=== PATIENT | male | born 1955 | race Caucasian/White ===

== ENCOUNTER → 2019-06-30 | Outpatient (CLI) | payer OTHER ==
[2015-08-18 21:13] VITALS: BP 139/81
--- NOTE | 2019-06-30 16:32 | RAD ---
Testicular and scrotal duplex sonogram Clinical indications: Scrotal mass. FINDINGS: Duplex sonography of the scrotum and both testicles was performed including grayscale evaluation and color flow and waveform spectral analysis. The longitudinal and AP and transverse dimensions of the right testicle are 4.1 cm and 1.9 cm and 3.2 cm respectively. The longitudinal AP and transverse dimensions of the left testicle are 3.7 cm and 1.7 cm and 3.3 cm respectively. No testicular mass is seen. Symmetric color Doppler flow is seen within the testicles and therefore no testicular torsion is seen. There is a cyst of the head of the epididymis on the right side measuring 5 mm in size. There are 2 small cysts of the head of epididymis on the left side one measuring 4 mm and the larger one measuring 9 mm. No hyperemia is seen around this larger cyst. No abnormal hydrocele is seen on either side. In the area of clinical concern of the palpable nodule of the scrotum, there is a 6 mm x 4 mm x 3 mm subcutaneous hypoechoic complex nodule with no internal color flow. There is mild sound through-transmission. Given it's location, a subcutaneous complex sebaceous cyst is possible. IMPRESSION: Normal testicular sonogram. Bilateral epididymal cysts. With regard to the palpable lump, a small subcutaneous complex hypoechoic nodule is seen measuring 6 mm in size. This may represent a complex sebaceous cyst. Recommend clinical follow-up with regard to any growth in size. Electronically signed by: Robby Pop MD (06/30/2019 4:29 PM) [id number]
== END | disposition home or self-care (01) ==
LOC: US 09:50
PROVIDERS: ATTEND Physician Assistant
DX: N50.89 Other specified disorders of the male genital organs (principal); N50.3 Cyst of epididymis
CPT/HCPCS: 76870

== ENCOUNTER 2019-07-16 09:09 | Emergency (ER) | payer OTHER ==
[~2019-07-16] VITALS: Ht 177.8 cm; Wt 98.7 kg
[2019-07-16] MEDS ORDERED: IV NORMAL SALINE 1,000ML 1,000 ML IV SCH (09:26)
[2019-07-16] MEDS ORDERED: ASPIRIN 81 MG TAB.CHEW PO ONE (09:30)
[2019-07-16] MEDS ORDERED: NITROGLYCERIN SUBLINGUAL 0.4 MG BOTTLE OF 25. SL PRN (09:30)
--- NOTE | 2019-07-16 09:32 | PHYS DOC ---
Past History Past Medical History: High Cholesterol Past Surgical History: Knee Replacement, Other Alcohol Use: None Drug Use: None The HEART Score for CP Pts HEART Score for Chest Pain: HEART Score for Chest Pain Response (Comments) Value History Moderately Suspicious 1 ECG Nonspecific Repolarizatio 1 Age >45 - < 65 1 Risk Factors 1 or 2 Risk Factors 1 Troponin >3 x Normal Limit 2 Total 6 Risk Factors: Risk Factors: DM, Current or recent (<one month) smoker, HTN, HLP, family history of CAD, obesity. Risk Scores: Score 0 - 3: 2.5% MACE over next 6 weeks - Discharge Home Score 4 - 6: 20.3% MACE over next 6 weeks - Admit for Clinical Observation Score 7 - 10: 72.7% MACE over next 6 weeks - Early Invasive Strategies Adult General Chief Complaint Chief Complaint: CHEST PAIN HPI HPI Patient is a 64-year-old male who presents with complaint of chest tightness as well as some shortness of breath that started yesterday. Patient states that pain had resolved last night but then resumed this morning when he was at gym exercising. He states that pain did not get any worse with exertion. He describes pain as a tightness and rates it at a 3 out of 10. He also admits to some nausea but no vomiting or diaphoresis. Patient does indicate that he has a history of high cholesterol and his brother from heart attack.[] Review of Systems Review of Systems Constitutional: Denies fever or chills [] Respiratory: Admits to shortness of breath [] Cardiovascular: No additional information not addressed in HPI [] GI: Denies abdominal pain, vomiting or diarrhea [] Integument: Denies rash or skin lesions [] Neurologic: Denies headache, focal weakness or sensory changes [] All other systems were reviewed and found to be within normal limits, except as documented in this note. Allergies Allergies Allergies Coded Allergies Type Severity Reaction Last Updated Verified vancomycin Allergy Intermediate 08/18/15 Yes Physical Exam Physical Exam Constitutional: Well developed, well nourished, no acute distress, non-toxic appearance. [] HENT: Normocephalic, atraumatic, bilateral external ears normal, oropharynx moist, no oral exudates, nose normal. [] Eyes: PERRLA, EOMI, conjunctiva normal, no discharge. [] Neck: Normal range of motion, no tenderness, supple, no stridor. [] Cardiovascular: Regular rate and rhythm[] Lungs & Thorax: Bilateral breath sounds clear to auscultation [] Abdomen: Bowel sounds normal, soft, no tenderness, no masses, no pulsatile masses. [] Skin: Warm, dry, no erythema, no rash. [] Extremities: No tenderness, no cyanosis, no clubbing, ROM intact, no edema. [] Neurologic: Alert and oriented X 3, normal motor function, normal sensory function, no focal deficits noted. [] EKG EKG EKG demonstrates normal sinus rhythm with rate of 74.[] Radiology/Procedures Radiology/Procedures [] Impressions: PROCEDURE: PORTABLE CHEST 1V EXAM: Chest, single view. HISTORY: Chest pain. COMPARISON: None. FINDINGS: A frontal view of the chest is obtained. There is no infiltrate, pleural effusion or pneumothorax. The heart is normal in size. There is an incidental left shoulder arthroplasty. IMPRESSION: No acute pulmonary finding. Electronically signed by: Magdalene Payne MD (07/16/2019 9:47 AM) [id number] Course & Med Decision Making Course & Med Decision Making Pertinent Labs and Imaging studies reviewed. (See chart for details) [] Dragon Disclaimer Dragon Disclaimer This electronic medical record was generated, in whole or in part, using a voice recognition dictation system. Departure Departure: Impression: Primary Impression: NSTEMI (non-ST elevated myocardial infarction) Disposition: 02 XFER [facility] Admitting Physician: Tan García Condition: IMPROVED Referrals: RAVINDER RODRIGUEZ (PCP) JAYME BOSCH Jr. DO Jul 16, 2019 09:32
[2019-07-16 09:37] LABS: BASO # 0.1 x10^3/uL (0.0-0.2); BASO % 1 % (0-3); EOS # 0.4 x10^3/uL (0.0-0.7); EOS % 4 % (0-3); HEMATOCRIT 43.1 % (39.0-53.0); HEMOGLOBIN 14.4 g/dL (13.0-17.5); LYMPH # 2.1 x10^3/uL (1.0-4.8); LYMPH % 20 % (24-48); MEAN CORPUSCULAR HEMOGLOBIN 33 pg (25-35); MEAN CORPUSCULAR HGB CONC 33 g/dL (31-37); MEAN CORPUSCULAR VOLUME 97 fL (79-100); MONO % 9 % (0-9); NEUT # 7.1 x10^3uL (1.8-7.7); NEUT % 66 % (31-73); PLATELET COUNT 296 x10^3/uL (140-400); RED BLOOD COUNT 4.43 x10^6/uL (4.30-5.70); RED CELL DISTRIBUTION WIDTH 14.9 % (11.5-14.5); WHITE BLOOD COUNT 10.7 x10^3/uL (4.0-11.0)
[2019-07-16 09:44] LABS: CALCIUM 9.8 mg/dL (8.5-10.1); CREATININE 0.9 mg/dL (0.7-1.3); POTASSIUM 4.2 mmol/L (3.5-5.1)
--- NOTE | 2019-07-16 09:50 | RAD ---
EXAM: Chest, single view. HISTORY: Chest pain. COMPARISON: None. FINDINGS: A frontal view of the chest is obtained. There is no infiltrate, pleural effusion or pneumothorax. The heart is normal in size. There is an incidental left shoulder arthroplasty. IMPRESSION: No acute pulmonary finding. Electronically signed by: Magdalene Payne MD (07/16/2019 9:47 AM) [id number]
[2019-07-16 09:57] LABS: ALBUMIN 3.9 g/dL (3.4-5.0); ALBUMIN/GLOBULIN RATIO 1.4 (1.0-1.7); MAGNESIUM 2.1 mg/dL (1.8-2.4); TOTAL BILIRUBIN 0.3 mg/dL (0.2-1.0); TOTAL PROTEIN 6.7 g/dL (6.4-8.2)
[2019-07-16] MEDS ORDERED: HEPARIN 25,000UTS/250ML PREMIX 250 ML IV PRN (10:30)
[2019-07-16] MEDS ORDERED: HEPARIN for IV BOLUS 10,000 UNIT/10 ML VIAL. IV ONE (10:30)
[2019-07-16] MEDS ORDERED: HEPARIN for IV BOLUS 10,000 UNIT/10 ML VIAL. IV PRN (10:30)
[2019-07-16 11:29] VITALS: BP 134/74
--- NOTE | 2019-07-16 23:40 | EKG ---
[address] [address] Test Date: 2019-07-16 Test Time: 09:28:33 Pat Name: ROLAND WHITING Department: Room: Gender: M Supply Chain Assistant: : 1955 Requested By: JAYME BOSCH Order Number: [id number] Reading MD: Measurements Intervals [place] Rate: 74 P: 56 [place]: 162 QRS: 64 QRSD: 94 T: 40 QT: 378 QTc: 420 Interpretive Statements SINUS RHYTHM QRS(T) CONTOUR ABNORMALITY CONSIDER ANTEROLATERAL MYOCARDIAL DAMAGE POSSIBLY ABNORMAL ECG RI6.01 No previous ECG available for comparison
== END 2019-07-16 12:27 | disposition short-term general hospital (02) ==
LOC: ER 09:09
DX: I21.4 Non-ST elevation (NSTEMI) myocardial infarction (principal); E78.00 Pure hypercholesterolemia, unspecified; Z88.1 Allergy status to other antibiotic agents
CPT/HCPCS: 36415; 71045; 80053; 83735; 83880; 84484; 85025; 85610; 85730; 93005; 96365; 96366; 96376; 99285; J1644; J7030

== ENCOUNTER 2021-01-27 07:08 | Emergency (ER) | payer MEDICARE ==
[~2021-01-27] VITALS: Ht 177.8 cm; Wt 100.0 kg
[2021-01-27 07:30] VITALS: BP 137/67
[2021-01-27] MEDS ORDERED: CEPH500T PO (07:40)
--- NOTE | 2021-01-27 07:40 | PHYS DOC ---
Past History Past Medical History: High Cholesterol Past Surgical History: Other Additional Past Surgical Histo: LEFT SHOULDER SURGERY, LEG SURGERY, BILAT HAMMER TOE SURGERY. Alcohol Use: None Drug Use: None General Adult EDM: Chief Complaint: UPPER EXTREMITY SWELLING HPI: HPI: 65-year-old male presents with right forearm swelling and redness. The patient was stung by an insect yesterday he is not sure if it was a hornet or wasp. He had some pain and local swelling last night but he woke up this morning and his whole elbow region appeared swollen. It is erythematous and warm to the touch so he came in for evaluation. Patient has no known allergy to stings. He denies fever or chills. Review of Systems: Review of Systems: Constitutional: Denies fever or chills Eyes: Denies change in visual acuity HENT: Denies nasal congestion or sore throat Respiratory: Denies cough or shortness of breath Cardiovascular: Denies chest pain or edema GI: Denies abdominal pain, nausea, vomiting, bloody stools or diarrhea : Denies dysuria Musculoskeletal: Swelling of the right forearm Integument: Rash Neurologic: Denies headache, focal weakness or sensory changes Endocrine: Denies polyuria or polydipsia Lymphatic: Denies swollen glands Psychiatric: Denies depression or anxiety Allergies: Allergies: Allergies Coded Allergies Type Severity Reaction Last Updated Verified vancomycin Allergy Intermediate 08/18/15 Yes Physical Exam: PE: Constitutional: Well developed, well nourished, no acute distress, non-toxic appearance. [] HENT: Normocephalic, atraumatic, bilateral external ears normal, oropharynx moist, no oral exudates, nose normal. [] Eyes: PERRLA, EOMI, conjunctiva normal, no discharge. [] Neck: Normal range of motion, no tenderness, supple, no stridor. [] Cardiovascular:Heart rate regular rhythm, no murmur [] Lungs & Thorax: Bilateral breath sounds clear to auscultation [] Abdomen: Bowel sounds normal, soft, no tenderness, no masses, no pulsatile masses. [] Skin: 5 cm erythematous and warm area around the right elbow and forearm consistent with cellulitis [] Back: No tenderness, no CVA tenderness. [] Extremities: No tenderness, no cyanosis, no clubbing, ROM intact, no edema. [] Neurologic: Alert and oriented X 3, normal motor function, normal sensory function, no focal deficits noted. [] Psychologic: Affect normal, judgement normal, mood normal. [] Current Patient Data: Vital Signs: Vital Signs Date Time Temp Pulse Resp B/P (MAP) Pulse Ox O2 Delivery O2 Flow Rate FiO2 01/27/21 07:30 98.6 80 18 137/67 (90) 96 Room Air EKG: EKG: [] Radiology/Procedures: Radiology/Procedures: [] Heart Score: C/O Chest Pain: N/A Risk Factors: Risk Factors: DM, Current or recent (<one month) smoker, HTN, HLP, family history of CAD, obesity. Risk Scores: Score 0 - 3: 2.5% MACE over next 6 weeks - Discharge Home Score 4 - 6: 20.3% MACE over next 6 weeks - Admit for Clinical Observation Score 7 - 10: 72.7% MACE over next 6 weeks - Early Invasive Strategies Course & Med Decision Making: Course & Med Decision Making Pertinent Labs and Imaging studies reviewed. (See chart for details) Patient appears to have cellulitis in addition to localized swelling from the sting. I will place him on Keflex for 7 days. He is stable for discharge at this time. [] Dragon Disclaimer: Dragon Disclaimer: This electronic medical record was generated, in whole or in part, using a voice recognition dictation system. Departure Departure: Impression: Primary Impression: Cellulitis of right forearm Disposition: HOME / SELF CARE / HOMELESS Condition: STABLE Referrals: ALEX COY MD (PCP) Patient Instructions: Cellulitis, [id number] Scripts Cephalexin (CEPHALEXIN) 500 Mg Tablet 1 TAB PO TID for cellulitis for 7 Days, #21 TAB Prov: RAZIA BARKER DO 01/27/21 RAZIA BARKER DO Jan 27, 2021 07:40
== END 2021-01-27 07:49 | disposition home or self-care (01) ==
LOC: ER 07:08
DX: L03.113 Cellulitis of right upper limb (principal); E78.00 Pure hypercholesterolemia, unspecified; Z88.1 Allergy status to other antibiotic agents
CPT/HCPCS: 99283

== ENCOUNTER 2021-02-09 10:56 | Emergency (ER) | payer MEDICARE ==
[~2021-02-09] VITALS: Ht 177.8 cm; Wt 104.0 kg
[~2021-02-09 10:56] MED LIST: CEPH500T PO
[2021-02-09 11:10] VITALS: BP 119/67
[2021-02-09] MEDS ORDERED: CEPH500C PO (12:16)
--- NOTE | 2021-02-09 12:16 | PHYS DOC ---
Past History Past Medical History: High Cholesterol Additional Past Medical Histor: Septic left knee Past Surgical History: Angioplasty, Knee Replacement, Other Additional Past Surgical Histo: LEFT SHOULDER SURGERY, LEG SURGERY, BILAT HAMMER TOE SURGERY. Alcohol Use: Rarely Drug Use: None General Adult EDM: Chief Complaint: INSECT BITE HPI: HPI: 65 yo M with no significant past medical history, presents the ED with complains of swelling to his right second finger, "I think something bit my knuckle," while patient was outside using a sling floor. States he came to the ED right away because he has a history of a similar injury that turned into a rash, requiring antibiotics. History of a right knee infection and is allergic to vancomycin. Patient takes no routine medications. Is not immunocompromised. No history of diabetes. No known h/o MRSA. Reports his tetanus is utd. Review of Systems: Review of Systems: Constitutional: Denies fever or chills Eyes: Denies change in visual acuity HENT: Denies nasal congestion or sore throat Respiratory: Denies cough or shortness of breath Cardiovascular: Denies chest pain or edema GI: Denies abdominal pain, nausea, vomiting, bloody stools or diarrhea Musculoskeletal: Denies back pain or decreased range of motion Integument: Denies diaphoresis or desquamation Neurologic: Denies focal weakness or sensory changes Psychiatric: Denies depression or anxiety Allergies: Allergies: Allergies Coded Allergies Type Severity Reaction Last Updated Verified vancomycin Allergy Intermediate 08/18/15 Yes Physical Exam: PE: Constitutional: Well developed, well nourished, no acute distress, non-toxic appearance. HENT: Normocephalic, atraumatic, Eyes: EOMI, conjunctiva normal, no discharge. Neck: Normal range of motion, supple, Cardiovascular: S1/2 present, regular rhythm Lungs & Thorax: Speaking in full sentences, bilateral equal chest rise, no tachypnea or increased work of breathing Skin: Warm, dry, Extremities: no cyanosis, dorsal aspect of right second PIP joint is mildly swollen with no decreased range of motion, equal radial pulses, intact median/radial/ulnar sensation, No pain with passive extension, no uniform digit swelling, no flexion posture and no percussion tenderness over entire flexor tendon sheath. Neurologic: Alert and oriented X 3, normal motor function, normal sensory function, no focal deficits noted. [] Psychologic: Affect normal, judgement normal, mood normal. [] Current Patient Data: Vital Signs: Vital Signs Date Time Temp Pulse Resp B/P (MAP) Pulse Ox O2 Delivery O2 Flow Rate FiO2 02/09/21 11:10 98.1 80 16 119/67 (84) 96 EKG: EKG: [] Radiology/Procedures: Radiology/Procedures: [] Heart Score: C/O Chest Pain: No Risk Factors: Risk Factors: DM, Current or recent (<one month) smoker, HTN, HLP, family history of CAD, obesity. Risk Scores: Score 0 - 3: 2.5% MACE over next 6 weeks - Discharge Home Score 4 - 6: 20.3% MACE over next 6 weeks - Admit for Clinical Observation Score 7 - 10: 72.7% MACE over next 6 weeks - Early Invasive Strategies Course & Med Decision Making: Course & Med Decision Making Pertinent Labs and Imaging studies reviewed. (See chart for details) Concern for possible bug bite injury with appropriate swelling, no evidence of flexor tenosynovitis or cellulitis. Will prescribe Keflex. Will discharge home with strict ED return precautions were given for worsening rash, decreased r celia of motion, fever or worsening pain. Encouraged urgent outpatient follow-up with PMD and hand surgery as needed for any decreased range of motion. Life- threatening processes were considered but are low suspicion at this time, given history, physical exam and ED workup. Pt was educated on all prescription medications and adverse effects. All patient's questions were answered and pt was stable at time of discharge. Life/limb-threatening differential includes but is not limited to, trauma (fracture, dislocation, laceration, compartment syndrome, tendon or ligament injury), neurovascular injury or deficitcva/tia, infection (osteomyelitis, abscess, cellulitis, septic arthritis, necrotizing fasciitis), deep vein thrombosis, renal/cardiac/liver disease, medication adverse effect, lymphedema/anasarca, vascular insufficiency or malignancy, I have spoken with the patient and/or caregivers. I explained the patient's condition, diagnoses and treatment plan based on the information available to me at this time. I have answered the patient and/or caregiver's questions and addressed any concerns. The patient and/or caregivers have a good understanding of patient's diagnosis, condition and treatment plan as can be expected at this point. Vital signs have been stable. Patient's condition is stable and appropriate for discharge from the emergency department. Patient will pursue further outpatient evaluation with primary care physician or other designated or consulting physician as outlined in the discharge instru ctions. The patient and/or caregivers are agreeable to this plan of care and follow-up instructions have been explained in detail. The patient and/or caregivers have received these instructions in written form and have expressed an understanding of the discharge instructions. The patient and/or caregivers are aware that any significant change of condition or worsening of symptoms should prompt immediate return to this or the closest emergency department or call to [phone]. Norbert Disclaimer: Norbert Disclaimer: This electronic medical record was generated, in whole or in part, using a voice recognition dictation system. Departure Departure: Impression: Primary Impression: Bug bite Additional Impression: Finger swelling Disposition: 01 HOME / SELF CARE / HOMELESS Condition: STABLE Referrals: ALEX COY MD (PCP) Follow up with your pcp in 1-2 days for wound check or [facility] [phone] OR [facility]-Dr. Flor [phone] Patient Instructions: Edema, Insect Bite Additional Instructions: Hand & Upper [facility] FOR DEFIINITIVE MANAGEMENT WITHIN THE NEXT 7 DAYS if you should develop any decreased range of motion Appointments may be made with Doroteo Angel MD, Gianfranco Dove MD, Shakir Lyon MD or Trey Lester MD, by calling [phone] EMERGENCY DEPARTMENT GENERAL DISCHARGE INSTRUCTIONS Thank you for coming to [facility] (ED) today and trusting us with you care. We trust that you had a positivie experience in our Emergency Department. If you wish to speak to the department management, you may call the director at [phone]. YOUR FOLLOW UP INSTRUCTIONS ARE FOLLOWS: 1. Do you have a private Doctor? If you do not have a private doctor, please ask for a resource list of physicians or clinics that may be able to assist you with follow up care. 2. The Emergency Physician has interpreted your x-rays. The X-Ray specialist will also review them. If there is a change in the findings, you will be notified in 48 hours when at all possible. 3. A lab test or culture has been done, your results will be reviewed and you will be notified if you need a change in treatment. ADDITIONAL INSTRUCTIONS AND INFORMATION: 1. Your care today has been supervised by a physician who is specially trained in emergency care. Many problems require more than one evaluation for a complete diagnosis and treatment. We recommend that you schedule your follow up appointment as recommended to ensure complete treatment of you illness or injury. If you are unable to obtain follow up care and continue to have a problem, or if your condition worsens, we recommend that you return to the ED. 2. We are not able to safely determine your condition over the phone nor are we able to give sound medical advice over the phone. For these safety reasons, if you call for medical advice we will ask you to come to the ED for further evaluation. 3. If you have any questions regarding these discharge instructions please call the ED at [phone]. SAFETY INFORMATION: In the interest of safety, wellness, and injury prevention; we encourage you to wear your sealbelt, if you smoke; quite smoking, and we encourage family to use a protective helmet for bicycling and other sporting events that present an increased risk for head injury. IF YOUR SYMPTOMS WORSEN OR NEW SYMPTOMS DEVELOP, OR YOU HAVE CONCERNS ABOUT YOUR CONDITION; OR IF YOUR CONDITION WORSENS WHILE YOU ARE WAITING FOR YOUR FOLLOW UP APPOINTMENT; EITHER CONTACT YOUR PRIMARY CARE DOCTOR, THE PHYSICIAN WHOSE NAME AND NUMBER YOU WERE GIVEN, OR RETURN TO THE ED IMMEDIATELY. Scripts Cephalexin (KEFLEX) 500 Mg Capsule 1 CAP PO QID for prophylaxis infection for 7 Days, #28 CAP Prov: DOMINIQUE TAI DO 02/09/21 DOMINIQUE TAI DO Feb 09, 2021 12:16
== END 2021-02-09 12:20 | disposition home or self-care (01) ==
LOC: ER 10:56
DX: M79.89 Other specified soft tissue disorders (principal); W57.XXXA Bitten or stung by nonvenomous insect and other nonvenomous arthropods, initial encounter; Y93.89 Activity, other specified; Y92.89 Other specified places as the place of occurrence of the external cause; Y99.8 Other external cause status
CPT/HCPCS: 99283

== ENCOUNTER 2021-06-03 23:52 | Emergency (ER) | payer MEDICARE ==
[~2021-06-03] VITALS: Ht 177.8 cm; Wt 100.0 kg
[~2021-06-03 23:52] MED LIST changes: +CEPH500C PO
[2021-06-04] MEDS: ONDANSETRON 4MG ODT 4TABLET STARTPACK. PO ONE (00:15)
--- NOTE | 2021-06-04 00:20 | PHYS DOC ---
Past History Past Medical History: High Cholesterol Additional Past Medical Histor: Septic left knee Past Surgical History: Other Additional Past Surgical Histo: cardiac stents Alcohol Use: Rarely Drug Use: None Adult General Chief Complaint Chief Complaint: NAUSEA/VOMITING/DIARRHEA HPI HPI Patient is a 66-year-old male with a past medical history significant for CAD on Plavix and hypertension who presents with a chief complaint of nonbilious nonbloody emesis since yesterday. States he had a few episodes yesterday and since then had not really eaten much because when he eats he will vomit. States he has been able to drink some Gatorade however though. Denies any recent travel, traumas, illnesses, fevers, chest pain, shortness of breath, abdominal pain, diarrhea, dysuria, hematuria, blood in the stool. 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 States he has been vaccinated for COVID but is never been tested. Denies any dyspnea on exertion, orthopnea, PND or edema. Review of Systems Review of Systems Review of systems otherwise unremarkable except noted in HPI Allergies Allergies Allergies Coded Allergies Type Severity Reaction Last Updated Verified vancomycin Allergy Intermediate 08/18/15 Yes Physical Exam Physical Exam Constitutional: Well developed, well nourished, no acute distress, non-toxic appearance. [] HENT: Normocephalic, atraumatic, oropharynx moist, no oral exudates, nose normal. [] Eyes: conjunctiva normal, no discharge. [] Cardiovascular:Heart rate regular rhythm, no murmur [] Lungs & Thorax: No respiratory distress, wheezing or tachypnea Abdomen: no tenderness, Skin: Warm, dry, no erythema, no rash. [] Back:no CVA tenderness. [] Extremities: ROM intact, no edema. [] Neurologic: Alert and oriented X 3, normal motor function, normal sensory function, able to sit, stand and walk without issue, no focal deficits noted. [] Psychologic: Affect normal, judgement normal, mood normal. [] EKG EKG [] Radiology/Procedures Radiology/Procedures [] Heart Score C/O Chest Pain: No Risk Factors: Risk Factors: DM, Current or recent (<one month) smoker, HTN, HLP, family history of CAD, obesity. Risk Scores: Risk Factors: DM, Current or recent (<one month) smoker, HTN, HLP, family history of CAD, obesity. Course & Med Decision Making Course & Med Decision Making Patient is a 66 presents with nausea and vomiting since yesterday Vital signs not concerning. Physical exam noted above. Given antiemetics. EKG with a rate of 68, QRS of 96, QTc of 415, normal EKG. Troponin normal. Chest x-ray suggestive of very mild pulmonary edema or atypical pneumonia. Discussed all findings with patient. Discussed symptom management at home. Discussed light clear diet over the next couple of days. Advised to follow-up in the morning with primary care physician. Discussed COVID quarantine and given Covid education. Covid swab pending. Discussed [facility] website for guidelines. Gave return precautions to the ED. Patient grateful, verbalized understanding and agreed with plan of discharge. [] Dragon Disclaimer Dragon Disclaimer This electronic medical record was generated, in whole or in part, using a voice recognition dictation system. Departure Departure: Impression: Primary Impression: Nausea & vomiting Additional Impression: Pneumonia Disposition: 01 HOME / SELF CARE / HOMELESS Condition: STABLE Referrals: ALEX COY MD (PCP) Patient Instructions: Nausea and Vomiting, Pneumonia, Adult Additional Instructions: Thank you for coming in to the emergency department tonight and allowing us to take care of you. Please read all of the attached information very carefully to go over things we discussed. As discussed please take your antibiotics as prescribed and until gone. Please take your nausea medicine every 6 hours over the next day. Please be sure to drink plenty of fluids and taking some nutrition as we discussed. Please use your incentive spirometer as shown and discussed. Please call your primary care physician in the morning to update on your ED visit and set up a follow-up. Please come back with new or concerning symptoms as we discussed. You have been tested for COVID-19. It is an infection caused by a new type of coronavirus. COVID-19 will cause cold-like or mild flu symptoms in most. It can cause more severe symptoms like problems breathing in some. There is no treatment for COVID-19. The body will clear the infection over time. Self-care will help to ease discomfort. Steps to Take: Self-Care Rest as needed. Healthy habits may help you feel better. Steps include: Choose healthy foods including fruits and vegetables. Drink water throughout the day. Get plenty of sleep each night. If you smoke, try to quit. It may ease breathing. Avoid alcohol. Keep Others Healthy The virus can spread to others. Droplets are released every time you sneeze or cough. The droplets can get into the mouth, nose, or eyes of people near you and lead to infection. To lower the chances of spreading COVID-19 to others: Stay at home until your doctor has said it is safe to leave. If you tested positive this will mean staying isolated until both of the following are true: At least 7 days have passed since the start of illness. You are free of fever for at least 72 hours without the use of medicine. But also check the CDC website for guidelines as guidelines change frequently for quarantine During this time: - Avoid public areas, events, or transportation. Do not return to work or school until your doctor has said it is safe to do so. - Call ahead if you need to go to a medical center. Let them know you may have COVID-19. It will help them guide you where to go. They may also ask you to wear a facemask when you come to the office. - If you call for emergency medical services, let them know you may have COVID- 19. While at home: - Try to avoid close contact with others. Stay about 6 feet away. - If possible, spend most of your time in a separate room from others. - Use a face mask if you will be in close contact with others such as sharing a room or vehicle. - Have someone wipe down common surfaces in the home. Use household program architect every day on areas like doorknobs, counters, or sinks. - Cough or sneeze into a tissue. Throw the tissue away right after use. If a tissue is not available, cough or sneeze into your elbow. - Wash your hands often. Wash them after sneezing or coughing. Use soap and water and wash for at least 20 seconds. Alcohol based hand ship cleaner can be used if soap and water is not available. - Do not prepare food for others. Avoid sharing personal items like forks, spoons, or toothbrushes. - Avoid close contact with pets while you are sick. There is no evidence of the virus passing to pets. This is a safety step until more is known about this virus. Isolation can be frustrating. Social interaction can help. Keep in touch with friends and family through phone and tech options. You can still interact with others in your home, just keep a safe distance of about 6 feet. Follow-up: Your doctors office will check in with you to see if there are any changes in your health. You may be asked to keep track of symptoms to share with them. They will also let you know when you are clear to be in public again. Problems to Look Out For: Contact your doctor if your recovery is not going as you expect. Get emergency care if you have problems such as: - Trouble breathing - Nonstop chest pain or pressure - Changes in awareness, confusion, or problems waking - Lips or face have bluish color - Worsening of symptoms If you think you have an emergency, call for emergency medical services right away. As taken from [facility] Azithromycin (ZITHROMAX) 250 Mg Tablet 250 MG PO DAILY for PNA for 4 Days, #4 TAB 0 Refills Prov: PATRICIA REGALADO MD 06/04/21 Problem Qualifiers PATRICIA REGALADO MD Jun 04, 2021 00:20
--- NOTE | 2021-06-04 00:29 | EKG ---
[address] [address] Test Date: 2021-06-04 Test Time: 00:19:57 Pat Name: ROLAND WHITING Department: Room: Gender: M Invasive Physician: KAYLEE : [id number] Requested By: PATRICIA REGALADO Order Number: [id number] Reading MD: Arnold Miller Measurements Intervals [place] Rate: 68 P: 52 AK: 178 QRS: 55 QRSD: 96 T: 38 QT: 386 QTc: 415 Interpretive Statements SINUS RHYTHM Electronically Signed On 06-05-2021 14:05:05 DISH UP PERSON by Arnold Miller
[2021-06-04] MEDS: ONDANSETRON ODT 4 MG TAB.RAPDIS PO ONE (00:40)
[2021-06-04] MEDS: diphenhydrAMINE HCL 25 MG CAPSULE PO ONE (00:40)
--- NOTE | 2021-06-04 01:30 | RAD ---
EXAM: CHEST ONE VIEW. HISTORY: Nausea, vomiting, hypertension, coronary artery disease. COMPARISON: 07/16/2019. FINDINGS: A frontal view of the chest is obtained. There are mild interstitial infiltrates in the bases. There is no pneumothorax or pleural effusion. T he heart is not enlarged. A left total shoulder arthroplasty is noted. IMPRESSION: 1. Correlate for mild pulmonary edema or atypical pneumonia.. Electronically signed by: Macario Castañeda MD (06/04/2021 1:27 AM) [facility]
[2021-06-04] MEDS ORDERED: AZIT250T PO (01:36)
[2021-06-04] MEDS: AZITHROMYCIN 250 MG TABLET. PO ONE (01:43)
[2021-06-04 01:46] VITALS: BP 149/81
[2021-06-04] MEDS ORDERED: ONDA4TAB12 PO (01:56)
== END 2021-06-04 02:00 | disposition home or self-care (01) ==
LOC: ER 23:52
DX: J18.9 Pneumonia, unspecified organism (principal); R11.2 Nausea with vomiting, unspecified; E78.00 Pure hypercholesterolemia, unspecified; I25.10 Atherosclerotic heart disease of native coronary artery without angina pectoris; I10 Essential (primary) hypertension; Z20.822 Contact with and (suspected) exposure to COVID-19; Z88.1 Allergy status to other antibiotic agents
CPT/HCPCS: 71045; 84484; 93005; 99285; C9803; G0238; Q0162; Q0163; U0003

== ENCOUNTER → 2021-06-13 | Outpatient (CLI) | payer MEDICARE ==
[2021-06-04 01:46] VITALS: BP 149/81
[~2021-06-13] MED LIST changes: +AZIT250T PO; +ONDA4TAB12 PO
--- NOTE | 2021-06-13 12:49 | RAD ---
EXAM: Head CT without contrast. HISTORY: Headache. TECHNIQUE: Computed tomographic images of the head were obtained without contrast. *One or more of the following individualized dose reduction techniques were utilized for this examina tion: 1. Automated exposure control. 2. Adjustment of the mA and/or kV according to patient size. 3. Use of iterative reconstruction technique. COMPARISON: None. FINDINGS: There is a small acute subdural hematoma along the right cerebral convexity, posterior righ t falx and tentorium measuring approximately 9 mm in thickness. This results in effacement of the pos terior right lateral ventricle and 6 mm leftward midline shift. There is no convincing intraparenchym al or interpedicular hemorrhage. The visualized portions the orbits, paranasal sinuses mastoid air ce lls are unremarkable. There is no calvarial lesion. IMPRESSION: Small acute subdural hematoma along the right cerebral convexity, posterior right falx an d tentorium measuring 9 mm in thickness and associated with effacement of the posterior right lateral ventricle and 6 mm leftward midline shift. These findings are communicated Itzel, the nurse in the referring physician office, at 1240 hours on 06/13/2021. FOR INTERNAL CODING PURPOSES RESULT CODE: (C) Electronically signed by: Magdalene Payne MD (06/13/2021 12:46 PM) [id number]
== END ==
LOC: CT 12:23
PROVIDERS: ATTEND Internal Medicine
DX: S06.5X9A Traumatic subdural hemorrhage with loss of consciousness of unspecified duration, initial encounter (principal); G44.89 Other headache syndrome; X58.XXXA Exposure to other specified factors, initial encounter; Y93.89 Activity, other specified; Y92.89 Other specified places as the place of occurrence of the external cause; Y99.8 Other external cause status
CPT/HCPCS: 70450